=== PATIENT | male | born 1945 | race Caucasian/White ===

== ENCOUNTER 2021-03-01 10:44 | Outpatient (CLI) | payer MEDICARE ==
[2021-03-01 12:06] LABS: Actual Bicarbonate (HCO3a) 26.8 mEq/L (22-28); Base Excess (BEa) 1.4 mEq/L (-2.0 to +3.0); Calcium, Ionized (arterial) 1.17 mmol/L (1.12-1.30); Carboxyhemoglobin (COHb) 5.1 gm% (0.0-3.0); Hemoglobin (Hb) 14.7 g/dL (14.0-18.0); O2 Tension (PaO2), arterial 66.8 mmHg (> 70.0); Potassium - ABG Lab 4.1 mmol/L (3.70-5.30); Puncture Site RRA; pH, Arterial 7.39 (7.35-7.45)
== END 2021-03-01 10:45 | disposition home or self-care (01) ==
LOC: CSHRAD 10:44
PROVIDERS: ATTEND Specialist
DX: J44.1 Chronic obstructive pulmonary disease with (acute) exacerbation (principal)
CPT/HCPCS: 36600; 82805